=== PATIENT | female | born 1985 | race African-American/Black ===

== ENCOUNTER 2017-06-12 11:05 | Emergency (ER) | payer OTHER ==
[2017-06-12] MEDS ORDERED: Meclizine HCl 25 MG TAB ONE (11:27)
[2017-06-12 11:49] LABS: #Basophils 0.1 thou/uL (0.0-0.2); #Eosinphils 0.1 thou/uL (0.0-0.7); #Lymphocytes 1.9 thou/uL (1.20-3.40); #Monocytes 0.4 thou/uL (0.11-0.59); #Neutrophils 2.5 thou/uL (1.40-6.50); %Basophils 2.2 % (0.0-1.0); %Eosinophils 2.2 % (0.0-10.0); %Lymphocytes 37.6 % (21.0-51.0); Mean Platelet Volume 8.2 fL (7.4-10.4); Red Blood Cell (RBC) Count 4.78 mill/uL (4.20-5.40)
[2017-06-12 12:18] LABS: Bilirubin Negative (Negative); Blood, Urine Negative (Negative); Glucose, Urine (Dipstick) Negative (Negative); Ketone, Urine Negative (Negative); Nitrite Negative (Negative); Protein, Urine (Dipstick) Negative (Neg-Trace); Urobilinogen 0.2 mg/dL (0.2-1.0)
[2017-06-12 12:30] LABS: Amphetamine Not Detected (NotDetected); Methadone Not Detected (NotDetected); Methamphetamine Not Detected (NotDetected)
[2017-06-12] MEDS ORDERED: Ketorolac Tromethamine 30 MG/ML VIAL ONE (12:36)
[2017-06-12 12:38] LABS: ALT (SGPT) 9 U/L (8-55); AST (SGOT) 15 U/L (5-34); Alkaline Phosphatase 104 U/L (40-150); Anion Gap 16 mmol/L (10-20); BUN (Urea Nitrogen) 11 mg/dL (7.0-18.7); Bilirubin, Total 0.3 mg/dL (0.2-1.2); CK (CPK) 85 U/L (29-168); Calc. Creatinine Clearance 0 mL/min (70-130); Calcium 9.5 mg/dL (7.8-10.44); Carbon Dioxide 22 mmol/L (22-29); Chloride 108 mmol/L (98-107); Estimated GFR-MDRD Greater than 90; Globulin 3.5 g/dL (2.4-3.5); Protein, Total 7.3 g/dL (6.0-8.3)
[2017-06-12 12:39] LABS: Troponin I Less than 0.010 ng/mL (< 0.028)
--- NOTE | 2017-06-12 13:17 | CT ---
CT BRAIN WITHOUT CONTRAST: HISTORY: Headache. COMPARISON: None available. FINDINGS: No acute territorial infarct or hemorrhage. No midline shift or mass effect. The ventricular size a nd extraaxial CSF spaces are normal. The brain was intact. The paranasal sinuses and mastoids were clear. IMPRESSION: No acute intracranial abnormality. POS: [facility]
== END 2017-06-12 13:05 | disposition home or self-care (01) ==
LOC: SCSER 11:05
DX: R42 Dizziness and giddiness (principal); R51 Headache; I10 Essential (primary) hypertension
CPT/HCPCS: 70450; 80053; 80306; 81003; 81025; 82550; 82553; 84484; 85025; 93005; 96374; J1885